=== PATIENT | female | born 1950 | race Caucasian/White ===

== ENCOUNTER 2017-07-13 14:59 | Emergency (ER) | payer OTHER ==
[~2017-07-13] VITALS: Ht 157.5 cm; Wt 73.5 kg
[~2017-07-13 14:59] MED LIST: ACCUNEB SO1.25 MG/1; ACID CONTROLLER10 MG PO; ALPRAZOLAM 0.0.25 M1 PO; ALPRAZOLAM 0.50.5 MG PO; ATENOLOL 50MG T50 MG PO; B12INJ IM; CATAPRES-TTS 20.2 MG TD; CATAPRES-TTS 20.2 MG TRANSDERM; CELEXA40 MG; CHANTIX1 MG; CLONIDINE0.1 TD; COUMADIN 2.5MG2.5 M1 PO; COUMADIN 4 MG TA4 M1 PO; COUMADIN 5 MG TA5 M1 PO; CYMBALTA30 MG PO; DILTIAZEM 24HR240 M2 PO; FENTANYL PA12 MCG/H1 TD; FENTANYL PA12 MCG/H1 TOP; FENTANYL PA25 MCG/HR TD; FENTANYL PA25 MCG/HR TOP; FENTANYL PA50 MCG/HR TRANSDERM; GABAPENTIN 100100 MG PO; GABAPENTIN100 MG PO; HYDROCODON-ACE1 EAC5; HYDROCODON-ACE1 EAC5 PO; HYDROCODONE-AP1 EACH PO; HYDROXYCHLOROQ200 M1 PO; KLOR-CON 1010 MEQ PO; LEVAQUIN 500 M500 M1 PO; LISINOPRIL10 MG PO; LISINOPRIL40 MG; LISINOPRIL40 MG PO; LOMOTIL TABLET1 EACH PO; LOPRESSOR25 PO; MAGNESIUM OXID400 MG PO; MICROZIDE12.5 MG PO; NAPROSYN500 MG PO; NEXIUM40 MG PO; NICOTINE TRANSD21 M1; NICOTINE TRANSDE7 MG TRANSDERM; NICOTINE1 EACH; NORCO 10-325 T1 EACH PO; NORCO 5-325 TA1 EACH PO; ONDANSETRON HCL4 M2 PO; PANCREASE; PANCREAZE 21,01 EACH; PANTOPRAZOLE SO40 M1 PO; PAROXETINE HCL40 MG PO; PAXIL 20 MG TAB20 M1 PO; PAXIL20 MG PO; PHENERGAN 25 MG25 M1 PO; PHENERGAN 25 MG25 MG PO; PREDNISONE 10 M10 M1 PO; PREDNISONE 10 M10 MG PO; PREVACID 30MG C30 M1 PO; PROTONIX 20 MG20 M1 PO; PROTONIX40 M2 PO; SEROQUEL 25 MG25 M1 PO; THIORIDAZINE HC50 M1 PO; TOPROL XL25 MG PO; TOPROL XL50 MG PO; TRAMADOL 50 MG50 MG PO; TYLENOL325 MG PO; VIOKASE 8 TABL468 MG PO; VITAMIN B-121000 MCG IM; WARFARIN PO; WELLBUTRIN SR150 MG PO; XANAX 0.25 MG0.25 MG; XANAX 0.5 MG0.5 M1 PO; XANAX 0.5 MG0.5 MG PO; ZESTRIL40 MG PO; ZOFRAN ODT4 MG PO
[2017-07-13] MEDS ORDERED: VIBRAMYCIN 100100 M2 PO (15:23)
[2017-07-13 16:47] VITALS: BP 145/82
== END 2017-07-13 16:50 | disposition home or self-care (01) ==
LOC: ER 14:59
DX: S50.11XA Contusion of right forearm, initial encounter (principal); I10 Essential (primary) hypertension; F32.9 Major depressive disorder, single episode, unspecified; G89.29 Other chronic pain; M06.9 Rheumatoid arthritis, unspecified; I48.91 Unspecified atrial fibrillation; F41.9 Anxiety disorder, unspecified; K86.1 Other chronic pancreatitis; Z86.73 Personal history of transient ischemic attack (TIA), and cerebral infarction without residual deficits; Z88.0 Allergy status to penicillin; Z88.8 Allergy status to other drugs, medicaments and biological substances; W22.8XXA Striking against or struck by other objects, initial encounter; Y93.89 Activity, other specified; Y92.89 Other specified places as the place of occurrence of the external cause; Y99.8 Other external cause status